=== PATIENT | male | born 1975 | race Caucasian/White ===

== ENCOUNTER 2016-06-16 07:52 | Emergency (ER) | payer OTHER ==
[2016-06-16 08:07] VITALS: BP 125/76; PULSE 103; RESP 16; TEMP 98.1; O2SAT 94
--- NOTE | 2016-06-16 08:17 | UCPHY ---
H & P Patient Type: Established Chief Complaint Nursing Narrative: sore throat since yesterday. denies cough/ congestion/nausea. admits to some muscle aches. HPI/ROS: HPI CHIEF COMPLAINT: Sore throat times 12 hours HISTORY OF PRESENT ILLNESS: this patient very pleasant 41-year-old male, denies any significant medical or surgical history presents to the Urgent care with 1 day of sore throat. He tells me that he has pain when he swallows. He denies fever, denies trouble swallowing, denies drooling, denies cough, congestion nausea vomiting or diarrhea. Denies sick contacts he tells me that he has been having a sore throat for 12 hours it caused him to not have much sleep last night and that is why he decided come to the urgent care. Past Medical History: Thyroid disease, AndroGel for testosterone replacement Past Surgical History: no significant surgical history Social History: denies use of drugs, alcohol, tobacco products Family History: noncontributory ROS REVIEW OF SYSTEMS: A comprehensive 10 point review of systems is otherwise negative aside from elements mentioned in the history of present illness. Exam Constitutional triage nursing summary reviewed, vital signs reviewed, awake/ alert. Eyes normal conjunctivae and sclera, EOMI, PERRLA. HENT mild erythema to tonsillar bed, no exudate no significant swelling, uvula midline, no signs of CERTIFIED REGISTERED NURSE ANESTHETIST, no signs of RPA, not drooling, no trismus, no signs of Xavier's, normal dentition, moist mucus membranes, no epistaxis, neck supple / no meningismus, no raccoon eyes. Respiratory clear to auscultation bilaterally, normal breath sounds, no respiratory distress, no wheezing. Cardiovascular rate normal, regular rhythm, no murmur, no edema, distal pulses normal. Gastrointestinal soft, non-tender, no rebound, no guarding, normal bowel sounds, no distension, no pulsatile mass. Genitourinary no CVA tenderness. Musculoskeletal no midline vertebral tenderness, full range of motion, no calf swelling, no tenderness of extremities, no meningismus, good pulses, neurovascularly intact. Skin pink, warm, & dry, no rash, skin atraumatic. Neurologic awake, alert and oriented x 3, AAOx3, moves all 4 extremities equally, motor intact, sensory intact, CN II-XII intact, normal cerebellar, normal vision, normal speech. Psychiatric normal mood/affect. Heme/Lymph/Immune no lymphadenopathy. Differential Diagnosis: includes but is not limited to in a particular order, viral pharyngitis, strep pharyngitis, URI, viral syndrome, mono Medical Decision Making: this patient appears well here nontoxic no acute distress, afebrile, no significant swelling of posterior pharynx exam, there is mild erythema without significant exudate, rapid strep is been sent. Re-evaluation: 0843: Negative rapid strep resulted. I will place patient on ibuprofen, Decadron, azithromycin as he does have significant pain and there is mild erythema to his tonsillar bed. Throat culture to follow. This patient may actually truly have strep pharyngitis even though the rapid strep is negative. Prescription for: azithromycin, Decadron, ibuprofen. He does understand to return to the ER if he develops worsening symptoms includes worsening throat pain, fever, swelling, trouble swallowing. Source: Patient - Medical/Surgical History Hx Asthma: No Hx Chronic Respiratory Disease: No Hx Diabetes: No Hx Cardiac Disease: No Hx Renal Disease: No Hx Cirrhosis: No Hx Alcoholism: No Hx HIV/AIDS: No Hx Splenectomy or Spleen Trauma: No Other PMH: hypothyroid - Family History Significant Family History: No pertinent family hx - Social History Smoking Status: Never smoked Constitutional: Initial Vital Signs Temperature (C) 36.7 C 06/16/16 08:06 Heart Rate 103 H 06/16/16 08:06 Respiratory Rate 16 06/16/16 08:06 Blood Pressure 125/76 H 06/16/16 08:06 O2 Sat (%) 94 06/16/16 08:06 O2 Delivery Mode Room Air Allergies/Adverse Reactions: Penicillins Allergy (Verified 06/16/16 08:05) Home Medications: Medication Instructions Recorded Levothyroxine [Synthroid 50 mcg 04/20/14 (*)] Testosterone [Testim] 04/20/14 AZITHROMYCIN [Z-PACK] 250 mg PO DAILY #6 tab 06/16/16 Dexamethasone [Decadron 4 MG (*)] 4 mg PO DAILY #4 tab 06/16/16 Ibuprofen [Motrin (*)] 800 mg PO Q6-8PRN #10 tab 06/16/16 Medical Decision Making - Data Points Laboratory Results: 06/16/16 06/16/16 Unknown 08:05 Group A Strep Screen NEGATIVE (NEGATIVE) Group A Strep DNA Pending Departure - Departure Disposition: Home, Routine, Self-Care Clinical Impression: Pharyngitis Qualifiers: Pharyngitis/tonsillitis etiology: unspecified etiology Qualifier Code: (J02.9) Acute pharyngitis, unspecified Condition: Good Instructions: Pharyngitis (ED) Additional Instructions: 1. Please drink lots of fluids stay well-hydrated 2. return to the emergency room if he develops worsening symptoms questions or concerns includes worsening throat pain, fever, vomiting 3. take your antibiotic as prescribed 4. your rapid strep was negative. Referrals: LILA NICOLE [Primary Care Provider] - As per Instructions Prescriptions: Dexamethasone [Decadron 4 MG (*)] 4 mg PO DAILY #4 tab Ibuprofen [Motrin (*)] 800 mg PO Q6-8PRN #10 tab AZITHROMYCIN [Z-PACK] 250 mg PO DAILY #6 tab - PQRS PQRS Measurement: n/a
== END 2016-06-16 08:57 | disposition home or self-care (01) ==
LOC: CED 07:52
DX: J02.9 Acute pharyngitis, unspecified (principal); E03.9 Hypothyroidism, unspecified; Z88.0 Allergy status to penicillin
CPT/HCPCS: 87880-PO; 99214-PO; G0463-PO